=== PATIENT | male | born 1955 | race Caucasian/White ===

== ENCOUNTER 2017-11-11 13:25 | Observation (INO) | payer BC ==
[~2017-11-11] VITALS: Ht 175.3 cm; Wt 86.9 kg
[2017-11-11] MEDS ORDERED: LACTATED RINGERS 1,000 ML IV SCH (14:17)
[2017-11-11] MEDS ORDERED: ZOLP10TA5 PO (14:21)
[2017-11-11] MEDS ORDERED: CARB1TAB22 PO (14:21)
[2017-11-11] MEDS ORDERED: HYDR25TA6 PO (14:21)
[2017-11-11] MEDS ORDERED: SERT50TA5 PO (14:21)
[2017-11-11] MEDS ORDERED: AMLO5TAB2 PO (14:21)
[2017-11-11] MEDS ORDERED: LOSA100T6 PO (14:21)
[2017-11-11] MEDS ORDERED: SIMV40TA3 PO (14:21)
[2017-11-11] MEDS ORDERED: OXYC1TAB8 PO (14:21)
[2017-11-11] MEDS ORDERED: PRAM1TAB PO (14:21)
[2017-11-11 14:39] VITALS: BP 150/80
[2017-11-11] MEDS ORDERED: MIDAZOLAM 1 MG/ML, 2ML ONE ×2 (16:26→17:15)
[2017-11-11] MEDS ORDERED: FENTANYL PF 250 MCG/5ML ONE ×2 (16:26→17:15)
[2017-11-11] MEDS ORDERED: BACITRACIN 50,000 UNIT ONE (16:58)
[2017-11-11] MEDS ORDERED: THROMBIN 5,000 UNIT VIAL TP ONE ×3 (16:58→18:25)
[2017-11-11] MEDS ORDERED: BUPIVACAINE/PF 0.5% ONE (16:58)
[2017-11-11] MEDS ORDERED: EPINEPHRINE 1 MG/ML, 1ML ONE (16:58)
[2017-11-11] MEDS ORDERED: ROCURONIUM 10 MG/ML,10ML ONE (17:15)
[2017-11-11] MEDS ORDERED: CEFAZOLIN 1,000 MG ONE (17:15)
[2017-11-11] MEDS ORDERED: DEXAMETHASONE 4 MG/ML, 1ML ONE (17:15)
[2017-11-11] MEDS ORDERED: PROPOFOL 10 MG/ML, 20ML ONE (17:15)
[2017-11-11] MEDS ORDERED: SUCCINYLCHOLINE 20 MG/ML, 10ML ONE (17:15)
[2017-11-11] MEDS ORDERED: GLYCOPYRROLATE 0.2MG/1ML, 5ML ONE (17:15)
[2017-11-11] MEDS ORDERED: BUPIVACAINE/PF-EPI 0.5% 1:200K INFIL ONE (18:00)
[2017-11-11] MEDS ORDERED: BACITRACIN 50,000 UNIT IM ONE (18:00)
[2017-11-11] MEDS ORDERED: OXYC1TAB9 PO (19:11)
[2017-11-11] MEDS ORDERED: TIZA4TAB PO (19:11)
[2017-11-11] MEDS: HYDROmorphone 1 MG/ML, 1ML IV PRN ×3 (19:20→20:17)
[2017-11-11] MEDS ORDERED: PHARMACY MAY ADJ FOR RENAL FX MC PRN (19:30)
[2017-11-11] MEDS ORDERED: FENTANYL PF 100 MCG/2ML IV PRN (19:30)
[2017-11-11] MEDS ORDERED: LABETALOL 5MG/ML, 20ML IV PRN (19:30)
[2017-11-11] MEDS ORDERED: MAGNESIUM HYDROXIDE 8%, 30ML UDC PO PRN (19:30)
[2017-11-11] MEDS ORDERED: ONDANSETRON 2MG/ML, 2ML IVPush PRN ×2 (19:30)
[2017-11-11] MEDS ORDERED: METOCLOPRAMIDE 5 MG/ML, 2ML IV PRN (19:30)
[2017-11-11] MEDS ORDERED: PROMETHAZINE 25 MG/ML, 1ML IM PRN (19:30)
[2017-11-11] MEDS ORDERED: BISACODYL 10 MG SUPP PR PRN (19:30)
[2017-11-11] MEDS ORDERED: ACETAMINOPHEN 325 MG TABLET PO PRN (19:30)
[2017-11-11] MEDS ORDERED: OXYcodone 5 MG/5 ML ORAL.SOL UDC PO PRN (19:30)
[2017-11-11] MEDS ORDERED: DIAZEPAM 5 MG/ML, 2ML IV PRN (19:30)
[2017-11-11] MEDS ORDERED: hydrALAzine 20 MG/ML, 1ML IV PRN (19:30)
[2017-11-11] MEDS ORDERED: TIZANIDINE 4MG TABLET PO PRN (19:30)
[2017-11-11] MEDS ORDERED: DIPHENHYDRAMINE 50 MG/ML, 1ML IVPush PRN (19:30)
[2017-11-11] MEDS ORDERED: HYDROmorphone 1 MG/ML, 1ML IVPush PRN (19:30)
[2017-11-11] MEDS ORDERED: HYDROmorphone 2 MG/ML, 1ML ONE (19:37)
[2017-11-11] MEDS ORDERED: OXYcodone 5 MG/5 ML ORAL.SOL UDC ONE (19:38)
[2017-11-11 20:50] VITALS: BP 144/74
[2017-11-11] MEDS ORDERED: ZOLPIDEM 10MG TABLET PO SCH (21:00)
[2017-11-11] MEDS ORDERED: SIMVASTATIN 40 MG TABLET PO SCH (21:00)
[2017-11-11] MEDS: SODIUM CHLORIDE FLUSH 10ML SYR IVF SCH (21:55)
[2017-11-11] MEDS: NS + 20MEQ KCL 1,000 ML IV SCH (21:55)
[2017-11-11] MEDS: CARBIDOPA/LEVODOPA 25 MG/100 MG TABLET PO SCH (21:56)
[2017-11-11] MEDS: PRAMIPEXOLE 0.5MG TABLET PO SCH (21:57)
[2017-11-11] MEDS: OXYcodone/APAP 10/325MG TABLET PO PRN (23:40)
[2017-11-12 00:08] VITALS: BP 139/75
[2017-11-12] MEDS: CEFAZOLIN PMX 1GM/50ML 50 ML IVPB SCH ×2 (01:07→09:14)
[2017-11-12 01:19] VITALS: BP 110/67
[2017-11-12 02:35] VITALS: BP 110/67
[2017-11-12 03:30] VITALS: BP 129/76
[2017-11-12] MEDS: OXYcodone/APAP 10/325MG TABLET PO PRN (06:05)
[2017-11-12] MEDS: NS + 20MEQ KCL 1,000 ML IV SCH (07:00)
[2017-11-12] MEDS ORDERED: HYDROCHLOROTHIAZIDE 25 MG TABLET PO SCH (09:00)
[2017-11-12] MEDS ORDERED: LOSARTAN 50MG TABLET PO SCH (09:00)
[2017-11-12] MEDS: SODIUM CHLORIDE FLUSH 10ML SYR IVF SCH (09:00)
[2017-11-12] MEDS: PRAMIPEXOLE 0.5MG TABLET PO SCH (09:00)
[2017-11-12] MEDS ORDERED: SENNA/DOCUSATE TABLET PO SCH (09:00)
[2017-11-12] MEDS ORDERED: AMLODIPINE 5 MG TABLET PO SCH (09:00)
[2017-11-12] MEDS ORDERED: SERTRALINE 50MG TABLET PO SCH (09:00)
[2017-11-12] MEDS: CARBIDOPA/LEVODOPA 25 MG/100 MG TABLET PO SCH (09:14)
[2017-11-12 09:30] VITALS: BP 129/73
[2017-11-12 11:50] VITALS: BP 131/76
== END 2017-11-12 12:30 | disposition home or self-care (01) ==
LOC: OR 13:25 → 4NOR 19:04 → DCLOUNGE 11-12 12:30
PROVIDERS: ADMIT Neurological Surgery; ATTEND Neurological Surgery
DX: M48.061 Spinal stenosis, lumbar region without neurogenic claudication (principal); M54.16 Radiculopathy, lumbar region; M51.36 Other intervertebral disc degeneration, lumbar region; J45.909 Unspecified asthma, uncomplicated; F10.20 Alcohol dependence, uncomplicated; Z87.891 Personal history of nicotine dependence; Z83.3 Family history of diabetes mellitus; Z82.49 Family history of ischemic heart disease and other diseases of the circulatory system
CPT/HCPCS: 63047; 63048; 72100; 93005; 96365; 96375; G0378; J0171; J0330; J0690; J1100; J1170; J2250; J2704; J3010; J3480; J3490; J7120